=== PATIENT | male | born 1975 | race African-American/Black ===

== ENCOUNTER 2022-12-31 19:09 | Emergency (ER) | payer BC ==
[2022-12-31 19:23] VITALS: BP 122/79; PULSE 77; RESP 14; TEMP 99.6; BMI 38.4
== END 2022-12-31 21:09 | disposition home or self-care (01) ==
LOC: JERFT 19:09
DX: M25.511 Pain in right shoulder (principal); W01.0XXA Fall on same level from slipping, tripping and stumbling without subsequent striking against object, initial encounter; Y93.01 Activity, walking, marching and hiking
CPT/HCPCS: 73030-TC-RT-FY; 99283-25